=== PATIENT | female | born 1950 | race Caucasian/White ===

== ENCOUNTER → 2022-11-23 | Outpatient (CLI) | payer MEDICARE, OTHER ==
[2022-11-25 10:12] LABS: HPV 16 Negative (Negative); HPV 18 Negative (Negative); HPV OTHER HR TYPES Negative (Negative)
== END | disposition home or self-care (01) ==
LOC: LAB SHORT 16:42 → LAB 16:42
PROVIDERS: Obstetrics & Gynecology
DX: Z01.419 Encounter for gynecological examination (general) (routine) without abnormal findings (principal)
CPT/HCPCS: 87624; 88175

== ENCOUNTER → 2022-11-23 | Outpatient (CLI) | payer MEDICARE, OTHER | LOC: LAB SHORT 08:09 → PLD 08:09 | DX: C54.1 Malignant neoplasm of endometrium (principal); C53.9 Malignant neoplasm of cervix uteri, unspecified; N84.1 Polyp of cervix uteri | CPT/HCPCS: 87624; 88175; 88305 ==

== ENCOUNTER 2024-06-18 11:11 | Emergency (ER) | payer MEDICARE, OTHER ==
[~2024-06-18] VITALS: Ht 162.6 cm; Wt 79.4 kg
[~2024-06-18 11:11] MED LIST: CALCIUM CARBON500 M1 PO; COQ1050 MG PO; GENICIN500 M1 PO; PROBIOTIC1 EA14 PO; VITAMIN D310 MC4 PO
--- NOTE | 2024-06-18 11:23 | NUR ---
overhead code in ortho rehab room. Debbie was found sitting in the chair pale, diaphoretic, unresponsive. Pt had a plapable pulse, put monitor zoll on her. Rhythm is sinus bradicardia 45-50, bp 90/40. Debbie woke slowly and was able to state her name, date of , where she is at and why. She was able to stand and pivot to chair, Encouraged her to go to the ER for further work up. She does not take medication but has been on cold medication as of late. She stated to this RN that she needed to "poop". Got her to the ER and updated them with her condition. They resumed care.
[2024-06-18 11:42] LABS: BASOPHILS ABSOLUTE AUTO 0.04 K/mm3 (0.00-0.23); BASOPHILS PERCENT AUTO 1 % (0-2); EOSINOPHILS ABSOLUTE AUTO 0.26 K/mm3 (0.00-0.68); EOSINOPHILS PERCENT AUTO 4 % (0-6); Hematocrit 38.3 % (33.0-51.0); Hemoglobin 13.1 g/dL (11.5-16.0); IMMATURE GRAN ABSOLUTE AUTO 0.02 K/mm3 (0.00-0.10); IMMATURE GRAN PERCENT AUTO 0 % (0-1); LYMPHOCYTES ABSOLUTE AUTO 1.91 K/mm3 (0.84-5.20); LYMPHOCYTES PERCENT AUTO 26 % (21-46); MONOCYTES ABSOLUTE AUTO 0.69 K/mm3 (0.16-1.47); MONOCYTES PERCENT AUTO 9 % (4-13); Mean Corpuscular HGB 31.5 pg (26.0-34.0); Mean Corpuscular HGB Conc 34.2 g/dL (31.5-36.5); Mean Corpuscular Volume 92 fL (80-100); NEUTROPHILS ABSOLUTE AUTO 4.39 K/mm3 (1.96-9.15); NEUTROPHILS PERCENT AUTO 60 % (41-73); Platelet Count 228 K/mm3 (150-400); RDW Coefficient Variation 12.4 % (11.7-14.2); RDW Standard Deviation 41.7 fL (35.1-46.3); Red Blood Cell Count 4.16 M/mm3 (3.80-5.20); White Blood Cell Count 7.31 K/mm3 (4.00-11.30)
[2024-06-18 12:06] LABS: Magnesium, Blood 1.9 mg/dL (1.6-2.4)
[2024-06-18 12:07] LABS: Albumin, Blood 3.6 g/dL (3.4-5.0); Albumin/Globulin Ratio 1.1 (0.8-1.8); Bun/Creatinine Ratio 13.1 (12.0-20.0); Calcium, Blood 9.4 mg/dL (8.5-10.1); Creatinine, Blood 1.07 mg/dL (0.40-1.00); Globulin, Blood 3.4 g/dL (2.2-4.0)
[2024-06-18 15:19] VITALS: BP 114/62
== END 2024-06-18 15:19 | disposition home or self-care (01) ==
LOC: ER 11:11
PROVIDERS: Emergency Medicine
DX: R55 Syncope and collapse (principal); M17.12 Unilateral primary osteoarthritis, left knee; Z79.899 Other long term (current) drug therapy
CPT/HCPCS: 80053; 83735; 84484; 85025; 93005; 93010; 93246; 99284-25

== ENCOUNTER 2024-10-10 06:06 | Day surgery (SDC) | payer MEDICARE, OTHER ==
[~2024-10-10] VITALS: Ht 160 cm; Wt 85.5 kg
[2024-10-10] VITALS (22 sets, daily range): BP systolic 93–141; BP diastolic 47–68
[~2024-10-10 06:06] MED LIST changes: +CALCIUM 600-VI1 EAC7 PO; -CALCIUM CARBON500 M1 PO; +GLUCHON PO; +Preservision S1 EACH PO
[2024-10-10] MEDS ORDERED: Lactated Ringer's 1,000 ML IV SCH ×2 (06:20→06:55)
[2024-10-10] MEDS ORDERED: OxyCODONE HCL 10 MG TABCR PO SCH ×2 (06:20→07:10)
[2024-10-10] MEDS ORDERED: CeFAZolin Sodium 2,000 MG in NS 100 ML IV SCH ×2 (06:20→15:45)
[2024-10-10] MEDS ORDERED: Chlorhexidine Mouth Care 15 ML UDC MT SCH (06:20)
[2024-10-10] MEDS ORDERED: Ropivacaine 0.5% HCl/Pf 123.125 MG,EPINEPHrine HCL 0.25 MG,Ketorolac Tromethamine 15 MG... INFIL SCH (06:20)
[2024-10-10] MEDS ORDERED: Promethazine HCl 25 MG Tab PO PRN (06:55)
[2024-10-10] MEDS ORDERED: Magnesium Hydroxide Conc 10 ML UDC PO PRN (06:55)
[2024-10-10] MEDS ORDERED: Metoclopramide HCl 5MG / ML 2ML Vial IV PRN (06:55)
[2024-10-10] MEDS ORDERED: OxyCODONE HCL 5 MG TAB PO PRN ×2 (06:55)
[2024-10-10] MEDS ORDERED: Ondansetron HCl 2 MG / ML 2ML Vial IV PRN ×2 (06:55→08:25)
[2024-10-10] MEDS ORDERED: Bisacodyl 10 MG Supp PR PRN (07:00)
[2024-10-10] MEDS ORDERED: HYDROmorphone HCl/Pf 1MG SYR IV PRN (07:00)
[2024-10-10] MEDS ORDERED: FLU VACC TS2024-25(6MOS UP)/PF 45 MCG/0.5 ML SYRINGE IM SCH (07:00)
[2024-10-10] MEDS ORDERED: DiphenhydrAMINE HCL 25 MG Cap PO PRN (07:00)
[2024-10-10] MEDS ORDERED: Tranexamic Acid 100 ML IV SCH (07:05)
[2024-10-10] MEDS ORDERED: CeFAZolin Sodium 2,000 MG VIAL ONE (07:05)
[2024-10-10] MEDS ORDERED: Acetaminophen 500 MG Tab PO SCH ×2 (07:10→16:00)
[2024-10-10] MEDS ORDERED: propofoL 50 ML IV ONE (07:12)
[2024-10-10] MEDS ORDERED: Midazolam HCl 1MG / ML 2ML Vial ONE (07:23)
[2024-10-10] MEDS ORDERED: FentaNYL Citrate 50 MCG/ML 2 ML Injection ONE ×2 (07:23→10:17)
--- NOTE | 2024-10-10 07:30 | NUR ---
Ambulatory in Day SurgeryPre-Op teaching done. Pt verbalizes understanding. History, Chart, Medications and Allergies reviewed before start of procedure.Patient confirms NPO status and agrees with scheduled surgery. Patient reports completing Chlorhexadine shower X2 prior to admission to hospital.
[2024-10-10] MEDS ORDERED: Phenylephrine HCl 100 MCG/ML-NS 10MLSYR (1MG/10ML) ONE (08:00)
[2024-10-10] MEDS ORDERED: Dexamethasone Sod Phos 10 MG/ML 1ML VIAL ONE (08:02)
[2024-10-10] MEDS ORDERED: propofoL 20 ML IV ONE ×2 (08:32→09:04)
[2024-10-10] MEDS ORDERED: Glucosamine Sulfate 500 MG Cap PO SCH (09:00)
[2024-10-10] MEDS ORDERED: COENZYME Q-10 PO SCH (09:00)
[2024-10-10] MEDS ORDERED: Ondansetron HCl 2 MG / ML 2ML Vial ONE (09:25)
--- NOTE | 2024-10-10 09:53 | NUR ---
10/10/24 0953 Zaira,Shahrzad ERYTHEMA FROM [facility] NOTED ON PATIENT'S INNER LEFT THIGH.
[2024-10-10] MEDS ORDERED: Ketorolac Tromethamine 15mg Vial IV SCH (12:00)
--- NOTE | 2024-10-10 18:49 | NUR ---
SHIFT SUMMARY ALTHOUGH SHE HAS BEEN SIPPING ON FLUIDS SINCE ARRIVAL TO UNIT w/ NO N/V. IVF RAN FROM ARRIVAL UNTIL THERAPY SESSION SINCE BLADDER SCAN WAS LOW IN PACU & SBP's. ONLY HAD SMALL AMOUNT OF DIZZINESS w/ THERAPY. UP IN CHAIR DOING WELL. EATING, DRINKING, & VOIDED. SURG SITE WNL.
[2024-10-10] MEDS ORDERED: Docusate Sodium 100 MG Cap PO SCH (21:00)
[2024-10-11 05:13] VITALS: BP 131/53
[2024-10-11 05:21] LABS: BASOPHILS ABSOLUTE AUTO 0.01 K/mm3 (0.00-0.23); BASOPHILS PERCENT AUTO 0 % (0-2); EOSINOPHILS PERCENT AUTO 0 % (0-6); Hematocrit 32.9 % (33.0-51.0); Hemoglobin 11.1 g/dL (11.5-16.0); IMMATURE GRAN ABSOLUTE AUTO 0.04 K/mm3 (0.00-0.10); IMMATURE GRAN PERCENT AUTO 0 % (0-1); LYMPHOCYTES ABSOLUTE AUTO 1.12 K/mm3 (0.84-5.20); LYMPHOCYTES PERCENT AUTO 9 % (21-46); MONOCYTES ABSOLUTE AUTO 0.59 K/mm3 (0.16-1.47); MONOCYTES PERCENT AUTO 5 % (4-13); Mean Corpuscular HGB 30.7 pg (26.0-34.0); Mean Corpuscular HGB Conc 33.7 g/dL (31.5-36.5); Mean Corpuscular Volume 91 fL (80-100); Mean Platelet Volume 9.6 fL (9.1-12.4); NEUTROPHILS PERCENT AUTO 86 % (41-73); Platelet Count 233 K/mm3 (150-400); RDW Coefficient Variation 12.6 % (11.7-14.2); RDW Standard Deviation 41.8 fL (35.1-46.3); Red Blood Cell Count 3.61 M/mm3 (3.80-5.20); White Blood Cell Count 12.26 K/mm3 (4.00-11.30)
[2024-10-11 05:43] LABS: Bun/Creatinine Ratio 21.8 (12.0-20.0); Calcium, Blood 8.9 mg/dL (8.5-10.1); Creatinine, Blood 1.1 mg/dL (0.40-1.00); Potassium, Blood 4.4 mmol/L (3.5-5.5)
--- NOTE | 2024-10-11 06:16 | NUR ---
SHIFT SUMMARY POD 1 S/P LEFT TKA. DRESSING AND MARCO A WRAP CDI. POLAR PACLK TO LEFT KNEE FERNIE T/O SHIFT. PAIN MANAGED PER EMAR. IS VOIDING AND FERNIE PO INTAKE. AMBULATING WITH FWW, GB, SBA. IV PATENT AND SL. PT UP IN CHAIR, DRESSED AND DRINKING TEA AT THIS TIME. HAS CALL LIGHT IN REACH. PLAN TO WORK WITH THERAPY AND D/C HOME TODAY. WILL GIVE REPORT TO ONCOMING RN.
[2024-10-11 07:17] VITALS: BP 107/47
[2024-10-11] MEDS ORDERED: Lactobacil 2-S.Thermo-Bifido 1 1 Cap PO SCH (09:00)
[2024-10-11] MEDS ORDERED: Trimethoprim/Sulfamethoxazole DS Tab PO SCH (09:00)
[2024-10-11] MEDS ORDERED: Calcium/Vit D 600 mg-400 Unit Tab PO SCH (09:00)
[2024-10-11] MEDS ORDERED: Beta-Carotene (A) W-C & E/Min 1 Tab PO SCH (09:00)
[2024-10-11] MEDS ORDERED: OXYC5 PO (10:53)
[2024-10-11] MEDS ORDERED: SULTRIDS PO (10:54)
[2024-10-11] MEDS ORDERED: XARELTO10 M4 PO (10:54)
--- NOTE | 2024-10-11 11:10 | NUR ---
DISCHARGE PT HAS WORKED w/ THERAPY. PAIN WELL CONTROLLED. EATING, DRINKING, & VOIDING WELL. AZIZA & JULISA VILLA SENT w/ PT. ESCORTED OUT VIA W/C.
[2024-10-11] MEDS ORDERED: Rivaroxaban 10 MG Tab PO SCH (19:00)
== END 2024-10-11 11:13 | disposition home or self-care (01) ==
LOC: ORSCMMR 06:06 → SURS 10:36 → ORSCMMR 10-11 11:13
PROVIDERS: Orthopaedic Surgery
PROC: 0SRD0JA Replacement of Left Knee Joint with Synthetic Substitute, Uncemented, Open Approach (ICD-10-PCS; principal; 2024-10-10 07:30)
DX: M17.12 Unilateral primary osteoarthritis, left knee (principal)
CPT/HCPCS: 36415; 73560-LT; 80048; 83735; 85025; 97110; 97110-CQ; 97116; 97116-CQ; 97161; 97530; 97530-CQ; A9270; C1713; C1776; J0171; J0690; J0735; J1100; J1885; J2250; J2371; J2405; J2704; J2795; J3010; J7120

== ENCOUNTER 2025-08-09 12:08 | Inpatient (IN) | payer MEDICARE, OTHER ==
[~2025-08-09] VITALS: Ht 162.6 cm; Wt 81.6 kg
[~2025-08-09 12:08] MED LIST changes: +OXYC5 PO; +SULTRIDS PO; +XARELTO10 M4 PO
[2025-08-09 14:34] LABS: BASOPHILS ABSOLUTE AUTO 0.04 K/mm3 (0.00-0.23); BASOPHILS PERCENT AUTO 1 % (0-2); EOSINOPHILS ABSOLUTE AUTO 0.27 K/mm3 (0.00-0.68); EOSINOPHILS PERCENT AUTO 4 % (0-6); Hematocrit 28.0 % (33.0-51.0); Hemoglobin 9.4 g/dL (11.5-16.0); IMMATURE GRAN ABSOLUTE AUTO 0.01 K/mm3 (0.00-0.10); IMMATURE GRAN PERCENT AUTO 0 % (0-1); LYMPHOCYTES ABSOLUTE AUTO 1.50 K/mm3 (0.84-5.20); LYMPHOCYTES PERCENT AUTO 22 % (21-46); MONOCYTES ABSOLUTE AUTO 0.48 K/mm3 (0.16-1.47); MONOCYTES PERCENT AUTO 7 % (4-13); Mean Corpuscular HGB Conc 33.6 g/dL (31.5-36.5); Mean Corpuscular Volume 95 fL (80-100); NEUTROPHILS ABSOLUTE AUTO 4.46 K/mm3 (1.96-9.15); NEUTROPHILS PERCENT AUTO 66 % (41-73); NRBC ABSOLUTE 0.00 K/mm3 (0.00-0.02); NRBC Auto 0.0 /100 WBC (0.0-0.2); Platelet Count 263 K/mm3 (150-400); RDW Coefficient Variation 11.9 % (11.7-14.2); RDW Standard Deviation 41.1 fL (35.1-46.3)
[2025-08-09 15:03] LABS: Alanine Aminotransfer (ALT/SGP 17 U/L (12-78); Albumin, Blood 4.0 g/dL (3.4-5.0); Albumin/Globulin Ratio 1.1 (0.8-1.8); Anion Gap 10 mmol/L (3-11); Aspartate Aminotrans (AST/SGOT 16 U/L (12-37); Bilirubin, Total 0.5 mg/dL (0.1-1.0); Blood Urea Nitrogen 64 mg/dL (8-24); CO2, Blood 24 mmol/L (21-32); Calcium, Blood 9.6 mg/dL (8.5-10.1); Chloride, Blood 108 mmol/L (98-108); Creatinine, Blood 4.82 mg/dL (0.40-1.00); Globulin, Blood 3.7 g/dL (2.2-4.0); Glucose, Blood 117 mg/dL (70-99); Potassium, Blood 4.6 mmol/L (3.5-5.5); Sodium, Blood 137 mmol/L (136-145); Total Protein, Blood 7.7 g/dL (6.4-8.2)
[2025-08-09 17:15] LABS: Source, Urine Clean Catch
[2025-08-09 17:29] LABS: Bilirubin, Urine Neg (Neg); Color, Urine Yellow (P-Yellow); Glucose Qualitative, Urine Neg (Neg); Ketones, Urine Neg (Neg); Leukocyte Esterase, Urine 3+ (Neg); Protein, Urine 1+ (Neg); Specific Gravity, Urine 1.010 (1.003-1.022); Urobilinogen, Urine NORM (Normal)
[2025-08-09] MEDS ORDERED: FLU VACC TS2025(65UP)/MF59C/PF 45 MCG/0.5 ML SYRINGE IM SCH (17:40)
[2025-08-09 18:24] LABS: Phosphorus, Blood 3.7 mg/dL (2.5-4.9)
[2025-08-09] MEDS ORDERED: MERIBIN5 MG PO (18:28)
[2025-08-09] MEDS ORDERED: MIRALAX1714 PO (18:29)
--- NOTE | 2025-08-09 18:50 | NUR ---
ADMISSION NOTE: PATIENT ARRIVES TO ROOM VIA W/C AT 1823 FROM ER FOR DX'S OF ARF. PATIENT TRANSFERRED TO BED INDEPENDENTLY. PATIENT ADMISSION, MEDRIC AND ASSESSMENT COMPLETED. PATIENT A/OX4, STANDING ROCK, PLEASANT, ANSWER TO QUESTIONS APPROIPRIATELY AND MAKE NEEDS KNOWN. PATIENT CODE STATUS CURRENTLY FULL CODE, BUT WISHES TO BE DNR. ADMISSION VITALS TAKEN. PATIENT ORIENTATED TO ROOM AND CALL SYSTEM. CALL LIGHT IN REACH.
--- NOTE | 2025-08-09 19:40 | NUR ---
DR Escobedo AT BEDSIDE--1730 DR GUERRERO NOT WANT A [address] SPOKE W/PATIENT. PLAN TO ORDER LABS FOR IN THE MORNING AND CHANGE TO REGULAR DIET. DISCUSSED CODE STATUS W/THE PATIENT. PT WILL REMAIN A FULL CODE. PT EXPRESSED SHE IS OK W/CPR AND LIFESUPPORT FOR A LIMITED TIME. IS AWARE OF WISHES AND WOULD BE ABLE TO DIRECT PATIENT'S CARE/WISHES IF PT IS UNABLE TO DO SO FOR HERSELF.
[2025-08-09 19:59] VITALS: BP 138/58
[2025-08-10 01:55] VITALS: BP 140/56
[2025-08-10 02:28] LABS: EOS, Urine 10.0 % (0.0-1.0); Eosinophils-Raw #,Urine 10; White Blood Cells Urine 25-50 /hpf (0-5)
[2025-08-10 04:03] VITALS: BP 134/111
--- NOTE | 2025-08-10 04:20 | NUR ---
Shift Summary: AOx4 pt. is [place], her speech clear & able to make all her needs known. all her VS within her baseline values, she denies any acute poain and/or discomfort, tolerating po fluids well, OOB and steadily ambulating back & forth to the bathroom ad jasmine, pt. voiding continent adequate amount of urine & denies any dysuria and/or any type of urinary discomfort when questioned by RN directly. Pt. was seen earlier by Dr. Melendez at bedside and MD is aware of her current overall status. She is resting comfortably with call flaherty within reach at this time. Will cont. to closely monitor.
[2025-08-10 05:49] LABS: BASOPHILS ABSOLUTE AUTO 0.03 K/mm3 (0.00-0.23); BASOPHILS PERCENT AUTO 1 % (0-2); EOSINOPHILS ABSOLUTE AUTO 0.36 K/mm3 (0.00-0.68); EOSINOPHILS PERCENT AUTO 6 % (0-6); Hematocrit 26.2 % (33.0-51.0); Hemoglobin 8.9 g/dL (11.5-16.0); IMMATURE GRAN ABSOLUTE AUTO 0.01 K/mm3 (0.00-0.10); IMMATURE GRAN PERCENT AUTO 0 % (0-1); LYMPHOCYTES ABSOLUTE AUTO 1.81 K/mm3 (0.84-5.20); LYMPHOCYTES PERCENT AUTO 32 % (21-46); MONOCYTES ABSOLUTE AUTO 0.45 K/mm3 (0.16-1.47); MONOCYTES PERCENT AUTO 8 % (4-13); Mean Corpuscular HGB Conc 34.0 g/dL (31.5-36.5); Mean Corpuscular Volume 95 fL (80-100); NEUTROPHILS ABSOLUTE AUTO 2.99 K/mm3 (1.96-9.15); NEUTROPHILS PERCENT AUTO 53 % (41-73); NRBC ABSOLUTE 0.00 K/mm3 (0.00-0.02); NRBC Auto 0.0 /100 WBC (0.0-0.2); Platelet Count 248 K/mm3 (150-400); RDW Coefficient Variation 11.9 % (11.7-14.2); RDW Standard Deviation 41.4 fL (35.1-46.3)
[2025-08-10 06:20] LABS: Albumin, Blood 3.6 g/dL (3.4-5.0); Anion Gap 12 mmol/L (3-11); Blood Urea Nitrogen 62 mg/dL (8-24); CO2, Blood 21 mmol/L (21-32); Calcium, Blood 9.6 mg/dL (8.5-10.1); Chloride, Blood 108 mmol/L (98-108); Creatinine, Blood 4.58 mg/dL (0.40-1.00); Glucose, Blood 109 mg/dL (70-99); Magnesium, Blood 2.4 mg/dL (1.6-2.4); Phosphorus, Blood 5.0 mg/dL (2.5-4.9); Potassium, Blood 4.2 mmol/L (3.5-5.5); Sodium, Blood 137 mmol/L (136-145); Total Iron Binding Capacity 276 ug/dL (250-450)
[2025-08-10 07:47] VITALS: BP 122/61
[2025-08-10 15:11] VITALS: BP 122/59
[2025-08-10] MEDS ORDERED: CefTRIAXone Sodium 1,000 MG in NS 100 ML IV ONE (17:25)
[2025-08-10] MEDS ORDERED: NS 250 ML IV PRN (17:25)
--- NOTE | 2025-08-10 17:25 | NUR ---
DAY SHIFT SUMMARY: PATIENT A/OX4, CIRCLE, PLEASANT AND COOPERATIVE c CARE, INDEPENDENT IN ROOM. PATIENT HAD HER RENAL ULTRASOUND DONE TODAY, DR. CASTORENA DISCUSSED RESULT c PATIENT AND SPOUSE AT BEDSIDE, THEY BOTH VERBALIZED UNDERSTANDING c NO FURTHER QUESTIONS. DR. LOCK (NEPHROLOGY) SPOKE c PATIENT AND SPOUSE VIA VEDIO CALL TODAY REGARDING PLAN OF CARE. PATIENT HAS GOOD APPETITE, CONTINENT OF BLADDER. PATIENT STARTED ON IV ABX THIS EVENING FOR UTI PER ORDER (SEE EMAR). VITAL SIGNS REVIEWED. PATIENT HAS HAD NO COMPLAINTS OR DENIES NEW CONERN THIS SHIFT. BED IN LOWEST POSITION. CALL LIGHT IN REACH.
[2025-08-11 03:13] VITALS: BP 110/58
--- NOTE | 2025-08-11 05:50 | NUR ---
Shift Summary- - Events: No new events. The patient rested comfortably with even, unlabored breathing. - Orientation: A/Ox4. - Ambulation: Independent. - Medication: Taken whole with water. - Toileting: Continent x2.
[2025-08-11 06:06] LABS: BASOPHILS ABSOLUTE AUTO 0.03 K/mm3 (0.00-0.23); BASOPHILS PERCENT AUTO 1 % (0-2); EOSINOPHILS ABSOLUTE AUTO 0.36 K/mm3 (0.00-0.68); EOSINOPHILS PERCENT AUTO 7 % (0-6); Hematocrit 24.9 % (33.0-51.0); Hemoglobin 8.5 g/dL (11.5-16.0); IMMATURE GRAN ABSOLUTE AUTO 0.01 K/mm3 (0.00-0.10); IMMATURE GRAN PERCENT AUTO 0 % (0-1); LYMPHOCYTES ABSOLUTE AUTO 1.67 K/mm3 (0.84-5.20); LYMPHOCYTES PERCENT AUTO 31 % (21-46); MONOCYTES ABSOLUTE AUTO 0.53 K/mm3 (0.16-1.47); MONOCYTES PERCENT AUTO 10 % (4-13); Mean Corpuscular HGB Conc 34.1 g/dL (31.5-36.5); Mean Corpuscular Volume 95 fL (80-100); NEUTROPHILS ABSOLUTE AUTO 2.88 K/mm3 (1.96-9.15); NEUTROPHILS PERCENT AUTO 53 % (41-73); NRBC ABSOLUTE 0.00 K/mm3 (0.00-0.02); NRBC Auto 0.0 /100 WBC (0.0-0.2); Platelet Count 242 K/mm3 (150-400); RDW Coefficient Variation 11.8 % (11.7-14.2); RDW Standard Deviation 40.9 fL (35.1-46.3)
[2025-08-11 06:34] LABS: Alanine Aminotransfer (ALT/SGP 13.0 U/L (12-78); Albumin, Blood 3.5 g/dL (3.4-5.0); Albumin/Globulin Ratio 1.1 (0.8-1.8); Anion Gap 12.0 mmol/L (3-11); Aspartate Aminotrans (AST/SGOT 11.0 U/L (12-37); Bilirubin, Total 0.5 mg/dL (0.1-1.0); Blood Urea Nitrogen 67.0 mg/dL (8-24); CO2, Blood 20.0 mmol/L (21-32); Calcium, Blood 8.6 mg/dL (8.5-10.1); Chloride, Blood 111.0 mmol/L (98-108); Creatinine, Blood 4.62 mg/dL (0.40-1.00); Globulin, Blood 3.3 g/dL (2.2-4.0); Glucose, Blood 104.0 mg/dL (70-99); Magnesium, Blood 2.4 mg/dL (1.6-2.4); Phosphorus, Blood 4.9 mg/dL (2.5-4.9); Potassium, Blood 4.5 mmol/L (3.5-5.5); Sodium, Blood 138.0 mmol/L (136-145); Total Protein, Blood 6.8 g/dL (6.4-8.2)
[2025-08-11 07:40] VITALS: BP 115/68
[2025-08-11] MEDS ORDERED: CefTRIAXone Sodium 1,000 MG in NS 100 ML IV SCH (09:00)
[2025-08-11 11:11] LABS: Source, Urine Clean Catch
[2025-08-11 11:17] LABS: Bilirubin, Urine Neg (Neg); Color, Urine Yellow (P-Yellow); Glucose Qualitative, Urine Neg (Neg); Ketones, Urine Neg (Neg); Leukocyte Esterase, Urine 2+ (Neg); Protein, Urine 1+ (Neg); Specific Gravity, Urine 1.010 (1.003-1.022); Urobilinogen, Urine NORM (Normal)
[2025-08-11 11:25] LABS: Red Blood Cells, Urine Not Seen /hpf (0-2)
[2025-08-11 16:00] VITALS: BP 125/61
--- NOTE | 2025-08-11 17:10 | NUR ---
PT ALERT AND ORIENTED X4, INDEPENDENT IN ROOM, VSS, URINE POSITIVE FOR E-COLI. IV ABX DAILY. PLAN TO DC 08/12 WITH OUTPT NEPHROLOGY FOLLOW UP APPT. CALL LIGHT IN REACH, PT VOICES NEEDS WELL.
[2025-08-11 19:34] VITALS: BP 124/52
[2025-08-11 23:45] LABS: COMPLEMENT COMPONENT 3 137 mg/dL (90-180); COMPLEMENT COMPONENT 4 23 mg/dL (10-40)
[2025-08-12 02:56] VITALS: BP 104/56
[2025-08-12 05:28] LABS: ANTI-NUCLEAR AB ANA,IGG ELISA None Detected (None Detected)
[2025-08-12 06:38] LABS: BASOPHILS ABSOLUTE AUTO 0.02 K/mm3 (0.00-0.23); BASOPHILS PERCENT AUTO 0 % (0-2); EOSINOPHILS ABSOLUTE AUTO 0.39 K/mm3 (0.00-0.68); EOSINOPHILS PERCENT AUTO 7 % (0-6); Hematocrit 25.7 % (33.0-51.0); Hemoglobin 8.6 g/dL (11.5-16.0); IMMATURE GRAN ABSOLUTE AUTO 0.01 K/mm3 (0.00-0.10); IMMATURE GRAN PERCENT AUTO 0 % (0-1); LYMPHOCYTES ABSOLUTE AUTO 1.69 K/mm3 (0.84-5.20); LYMPHOCYTES PERCENT AUTO 32 % (21-46); MONOCYTES ABSOLUTE AUTO 0.49 K/mm3 (0.16-1.47); MONOCYTES PERCENT AUTO 9 % (4-13); Mean Corpuscular HGB Conc 33.5 g/dL (31.5-36.5); Mean Corpuscular Volume 95 fL (80-100); NEUTROPHILS ABSOLUTE AUTO 2.77 K/mm3 (1.96-9.15); NEUTROPHILS PERCENT AUTO 52 % (41-73); NRBC ABSOLUTE 0.00 K/mm3 (0.00-0.02); NRBC Auto 0.0 /100 WBC (0.0-0.2); Platelet Count 254 K/mm3 (150-400); RDW Coefficient Variation 11.9 % (11.7-14.2); RDW Standard Deviation 40.6 fL (35.1-46.3)
[2025-08-12 06:47] LABS: Albumin, Blood 3.4 g/dL (3.4-5.0); Anion Gap 10 mmol/L (3-11); Blood Urea Nitrogen 74 mg/dL (8-24); CO2, Blood 21 mmol/L (21-32); Calcium, Blood 8.9 mg/dL (8.5-10.1); Chloride, Blood 112 mmol/L (98-108); Creatinine, Blood 4.59 mg/dL (0.40-1.00); Glucose, Blood 108 mg/dL (70-99); Magnesium, Blood 2.1 mg/dL (1.6-2.4); Phosphorus, Blood 4.9 mg/dL (2.5-4.9); Potassium, Blood 4.5 mmol/L (3.5-5.5); Sodium, Blood 138 mmol/L (136-145)
[2025-08-12 07:27] VITALS: BP 131/65
--- NOTE | 2025-08-12 14:16 | NUR ---
CALLED DR BARRETT FOR CLARIFICATION ON DISCHARGE MEDICATIONS. PER PT AND DR CASTORENA'S NOTE PT TO BE DISCHARGED HOME ON ORAL ANTIBIOTIC FOR UTI INFECTION AFTER RECEIVING THIRD IV DOSE ON 08/12. NO ORDERS FOR HOME ANTIBIOTICS PER DR BARRETT.
[2025-08-12] MEDS ORDERED: SODBIC650 PO (14:39)
[2025-08-12] MEDS ORDERED: 1/2 NS 250ml250 ML (14:39)
--- NOTE | 2025-08-12 16:16 | NUR ---
PT DISCHARGED HOME WITH , ALERT AND ORIENTED X4, WAS ABLE TO DRESS SELF AND TRANSFER TO . ALL DC INSTRUCTIONS REVIEWED WITH PT AND : REFFERRAL TO NEPHROLOGY, FOLLOW WITH PCP, HARD SCRIPT FOR BMP LAB DRAW FOR 08/14. PRESCRIPTIONS SENT TO PREFERRED [facility]ARM[facility]. ALL QUESTIONS ANSWERED.
[2025-08-13 07:43] LABS: ALPHA 1 GLOBULIN 0.26 g/dL (0.19-0.46); ALPHA 2 GLOBULIN 0.74 g/dL (0.48-1.05); BETA GLOBULIN 0.67 g/dL (0.48-1.10); GAMMA 0.69 g/dL (0.62-1.51); IMMUNOFIXATION REFLEX Not Done
== END 2025-08-12 15:05 | disposition home or self-care (01) | DRG 683 ==
LOC: ER 12:08 → MEDS 17:35 → ENPENDDIS 08-12 13:49 → MEDS 08-12 15:05
PROVIDERS: Hospitalist; Internal Medicine Nephrology; Student in an Organized Health Care Education/Training Program; ADMIT Family Medicine
DX: N17.9 Acute kidney failure, unspecified (principal); E87.20 Acidosis, unspecified; N39.0 Urinary tract infection, site not specified; R00.1 Bradycardia, unspecified; D64.9 Anemia, unspecified; M19.90 Unspecified osteoarthritis, unspecified site; H81.10 Benign paroxysmal vertigo, unspecified ear; B96.20 Unspecified Escherichia coli [E. coli] as the cause of diseases classified elsewhere; H35.30 Unspecified macular degeneration; Z90.710 Acquired absence of both cervix and uterus; Z86.19 Personal history of other infectious and parasitic diseases; Z79.899 Other long term (current) drug therapy
CPT/HCPCS: 36415; 76770; 80053; 80069; 81001; 82570; 82784; 83521; 83540; 83550; 83690; 83735; 84100; 84155; 84156; 84165; 85025; 86037; 86038; 86160; 86334; 87077; 87086; 87186; 87205; 87340; 93005; 93010; 99284-25; A9270; J0696; J7050